=== PATIENT | female | born 1975 | race Caucasian/White ===

== ENCOUNTER 2018-03-19 10:52 | Emergency (ER) | payer OTHER, MEDICAID ==
[~2018-03-19] VITALS: Ht 157.5 cm; Wt 109.3 kg
[2018-03-19 11:23] VITALS: BP_SYST 123
--- NOTE | 2018-03-19 11:39 | NUR ---
Patient to ER bed 03 to gown for evaluation. Side rails up.
--- NOTE | 2018-03-19 11:45 | NUR ---
Pt brought by mother, A&Ox4, pt presents to ER with bumps abd discoloration on L forearm and R breast, pt afebrile, skin pink and warm, VS WNL.
--- NOTE | 2018-03-19 12:00 | NUR ---
Dr Pelaez at bedside examining patient
[2018-03-19 12:36] LABS: BASOPHILS # (AUTO) 0.1 K/uL (0.0-0.2); BASOPHILS % (AUTO) 0.7 % (0.0-2.0); EOSINOPHILS # (AUTO) 0.1 K/uL (0.0-0.4); EOSINOPHILS % (AUTO) 1.1 % (0.0-4.0); HEMATOCRIT 46.5 % (36-48); HEMOGLOBIN 15.4 g/dL (12.0-16.0); LYMPHOCYTES # (AUTO) 2.9 K/uL (1.0-5.5); LYMPHOCYTES % (AUTO) 32.8 % (20.5-51.5); MEAN CORPUSCULAR HEMOGLOBIN 29 pg (27-31); MEAN CORPUSCULAR HGB CONC 33 % (32-36); MEAN CORPUSCULAR VOLUME 86 fL (79.0-98.0); MONOCYTES # (AUTO) 0.9 K/uL (0.0-1.0); NEUTROPHILS # (AUTO) 4.7 K/uL (1.8-7.7); NEUTROPHILS % (AUTO) 55.4 % (40.0-70.0); PLATELET COUNT (AUTO) 305 K/uL (130-430); RED BLOOD CELL COUNT(AUTO) 5.42 MIL/uL (4.2-6.2); RED CELL DISTRIBUTION WIDTH 13.4 % (9.0-15.0); WHITE BLOOD COUNT (AUTO) 8.7 K/uL (4.8-10.8)
[2018-03-19 12:44] LABS: CALCIUM 9.6 mg/dL (8.4-11.0); CREATININE 0.7 mg/dL (0.55-1.30); POTASSIUM 4.8 mmol/L (3.5-5.1)
[2018-03-19 12:48] LABS: ALBUMIN 3.4 g/dL (3.4-4.8); TOTAL BILIRUBIN 0.4 mg/dL (0.0-1.0)
[2018-03-19 13:19] VITALS: BP_SYST 150
[2018-03-19 14:11] LABS: ERYTHROCYTE SEDIMENTATION RATE 2 MM/HR (0-20)
--- NOTE | 2018-03-19 14:40 | NUR ---
Patient given written and verbal discharge instructions and verbalizes understanding. ER MD discussed with patient the results and treatment provided. Patient in stable condition. ID arm band removed. Rx of KEFLEX, TYLENOL given. Patient educated on pain management and to follow up with PMD. Pain Scale . Opportunity for questions provided and answered. Medication side effect fact sheet provided.
== END 2018-03-19 14:40 | disposition home or self-care (01) ==
LOC: SED 10:52
DX: L03.114 Cellulitis of left upper limb (principal); I10 Essential (primary) hypertension; F31.9 Bipolar disorder, unspecified; Z90.49 Acquired absence of other specified parts of digestive tract; Z86.73 Personal history of transient ischemic attack (TIA), and cerebral infarction without residual deficits; Z88.8 Allergy status to other drugs, medicaments and biological substances
CPT/HCPCS: 36415; 80053; 85025; 85651-TC; 99283

== ENCOUNTER 2019-03-13 07:54 | Emergency (ER) | payer OTHER, MEDICAID ==
[~2019-03-13] VITALS: Ht 157.5 cm; Wt 107.5 kg
[2019-03-13 08:09] VITALS: BP_SYST 134
--- NOTE | 2019-03-13 08:13 | NUR ---
Patient to ER bed 03 to gown for evaluation. Side rails up.
--- NOTE | 2019-03-13 08:20 | NUR ---
Patient presented to ER C/O cold and cough. Patient A&Ox4, skin pink and warm, afebrile, cough present, ambulatory to ER, cap refill <3, nasal congestion noted, lungs clear bilat, pain 3/10, denies N/V/D. Patient brought in by mother for cold symtoms and cough x3 weeks.
--- NOTE | 2019-03-13 08:24 | NUR ---
DR MARTINEZ AT BEDSIDE FOR EVALUATION
[2019-03-13 09:13] VITALS: BP_SYST 137
--- NOTE | 2019-03-13 09:13 | NUR ---
Patient given written and verbal discharge instructions and verbalizes understanding. ER MD discussed with patient the results and treatment provided. Patient in stable condition. ID arm band removed. Rx of PREDNISONE, AZITHROMYCIN given. Patient educated on pain management and to follow up with PMD. Pain Scale 0/10. Opportunity for questions provided and answered. Medication side effect fact sheet provided.
== END 2019-03-13 09:13 | disposition home or self-care (01) ==
LOC: SED 07:54
DX: J45.909 Unspecified asthma, uncomplicated (principal); I10 Essential (primary) hypertension; F31.9 Bipolar disorder, unspecified; F20.9 Schizophrenia, unspecified; Z86.73 Personal history of transient ischemic attack (TIA), and cerebral infarction without residual deficits; Z88.8 Allergy status to other drugs, medicaments and biological substances
CPT/HCPCS: 71045; 99283

== ENCOUNTER 2019-07-10 08:55 | Inpatient (IN) | payer OTHER, MEDICAID, SELFPAY ==
[2019-07-09 20:10] VITALS: BP_SYST 129
[~2019-07-10] VITALS: Ht 157.5 cm; Wt 99.8 kg
[2019-07-10 08:55] VITALS: BP_SYST 108
[2019-07-10] MEDS ORDERED: ASPIRIN 81 MG TAB.CHEW PO ONE (09:15)
[2019-07-10] MEDS ORDERED: ALBUTEROL SULFATE 0.083% 2.5 MG/3 ML VIAL.NEB INH ONE (09:28)
[2019-07-10] MEDS ORDERED: IPRATROPIUM BROM 0.5 MG/2.5 ML VIAL.NEB (ATROVENT) INH ONE (09:28)
[2019-07-10] MEDS ORDERED: PREDNISONE 20 MG TABLET PO ONE (09:30)
[2019-07-10] MEDS ORDERED: IPRATROPIUM/ALBUTEROL SULFATE 3 ML AMPUL.NEB (DUONEB) INH ONE (09:30)
[2019-07-10 09:38] LABS: BASOPHILS % (AUTO) 0.5 % (0.0-2.0); EOSINOPHILS # (AUTO) 0.1 K/uL (0.0-0.4); EOSINOPHILS % (AUTO) 1.2 % (0.0-4.0); HEMATOCRIT 40.1 % (36-48); HEMOGLOBIN 13.5 g/dL (12.0-16.0); LYMPHOCYTES # (AUTO) 3.3 K/uL (1.0-5.5); MEAN CORPUSCULAR HEMOGLOBIN 29 pg (27-31); MEAN CORPUSCULAR HGB CONC 34 % (32-36); MEAN CORPUSCULAR VOLUME 85 fL (79.0-98.0); MONOCYTES # (AUTO) 0.9 K/uL (0.0-1.0); NEUTROPHILS # (AUTO) 4.5 K/uL (1.8-7.7); NEUTROPHILS % (AUTO) 51.3 % (40.0-70.0); PLATELET COUNT (AUTO) 275 K/uL (130-430); RED BLOOD CELL COUNT(AUTO) 4.71 MIL/uL (4.2-6.2); RED CELL DISTRIBUTION WIDTH 14.2 % (9.0-15.0); WHITE BLOOD COUNT (AUTO) 8.8 K/uL (4.8-10.8)
[2019-07-10 09:47] LABS: CALCIUM 8.5 mg/dL (8.4-11.0); CREATININE 0.75 mg/dL (0.55-1.30); POTASSIUM 4.1 mmol/L (3.5-5.1)
[2019-07-10] MEDS ORDERED: ASPIRIN 81 MG TAB.CHEW ONE (09:59)
[2019-07-10 10:02] LABS: ALBUMIN 3.2 g/dL (3.4-4.8); TOTAL BILIRUBIN 0.3 mg/dL (0.0-1.0)
[2019-07-10] MEDS ORDERED: ALBMDI INH (10:59)
[2019-07-10] MEDS ORDERED: FLUT5.9S NS (10:59)
[2019-07-10] MEDS ORDERED: LUBI24CA5 PO (11:00)
[2019-07-10] MEDS ORDERED: ASPI-859 PO (11:01)
[2019-07-10] MEDS ORDERED: FOLI-43 PO (11:02)
[2019-07-10] MEDS ORDERED: FAMO20TA8 PO (11:02)
[2019-07-10] MEDS ORDERED: LURA40TA PO (11:03)
[2019-07-10] MEDS ORDERED: LEVO2.5S8 PO (11:04)
[2019-07-10 11:05] LABS: LACTATE DEHYDROGENASE 166 U/L (81-234)
[2019-07-10] MEDS ORDERED: PANT20TA2 PO (11:05)
[2019-07-10 11:06] LABS: C-REACTIVE PROTEIN QUANT < 0.2 mg/dL (0-0.5)
[2019-07-10] MEDS ORDERED: BISA5TAB10 PO (11:06)
[2019-07-10] MEDS ORDERED: TRIH2TAB3 PO (11:06)
[2019-07-10] MEDS ORDERED: VENL75CA PO (11:07)
[2019-07-10] MEDS ORDERED: CARV6.2554 PO (11:10)
[2019-07-10] MEDS ORDERED: DIVA500T4 PO (11:10)
[2019-07-10] MEDS ORDERED: BUPR100T13 PO (11:10)
[2019-07-10 12:59] VITALS: BP_SYST 123
[2019-07-10 13:00] VITALS: BP_SYST 123
[2019-07-10] MEDS ORDERED: LORazepam 2 MG/ML VIAL IVP PRN (14:15)
[2019-07-10] MEDS ORDERED: ACETAMINOPHEN 325 MG TABLET PO PRN (14:15)
[2019-07-10] MEDS ORDERED: ALBUTEROL MDI INHALATION 8 GM INH INH PRN (14:15)
[2019-07-10] MEDS ORDERED: ONDANSETRON HCL 4 MG/2 ML VIAL IVP PRN (14:15)
[2019-07-10 14:31] VITALS: BP_SYST 123
[2019-07-10] MEDS: D5/0.45 NS 1,000 ML IV SCH (16:32)
[2019-07-10 16:35] VITALS: BP_SYST 121
[2019-07-10] MEDS ORDERED: ALBUTEROL MDI INHALATION 8 GM INH INH SCH (17:00)
[2019-07-10] MEDS ORDERED: IOHEXOL 350 mgI/mL, 150 ML INFUS..BTL IV ONE (20:34)
[2019-07-10] MEDS: LUBIPROSTONE 24 MCG CAPSULE PO SCH (21:26)
[2019-07-10] MEDS: methylPREDNISolone SOD SUCC 40 MG/ML VIAL IVP SCH (21:26)
[2019-07-10] MEDS: FAMOTIDINE 20 MG TABLET PO SCH (21:27)
[2019-07-10] MEDS: CARVEDILOL 6.25 MG TABLET (COREG) PO SCH (21:27)
[2019-07-10] MEDS: DIVALPROEX SODIUM 500 MG TAB.SR.24H (DEPAKOTE ER) PO SCH (21:27)
[2019-07-10] MEDS: TRIHEXYPHENIDYL HCL 2 MG TABLET (ARTANE) PO SCH (21:28)
[2019-07-10] MEDS: buPROPion HCL 100 MG TABLET PO SCH (21:37)
[2019-07-11] VITALS: BP_SYST 125
[2019-07-11] MEDS: HYDROcodone/ACETAMIN 10-325 MG TAB PO PRN ×3 (00:04→20:40)
[2019-07-11] MEDS: D5/0.45 NS 1,000 ML IV SCH ×3 (02:44→22:03)
[2019-07-11 06:15] VITALS: BP_SYST 131
[2019-07-11 06:45] LABS: BASOPHILS % (AUTO) 0.2 % (0.0-2.0); HEMATOCRIT 38.1 % (36-48); HEMOGLOBIN 12.9 g/dL (12.0-16.0); LYMPHOCYTES # (AUTO) 1.9 K/uL (1.0-5.5); LYMPHOCYTES % (AUTO) 15.9 % (20.5-51.5); MEAN CORPUSCULAR HEMOGLOBIN 29 pg (27-31); MEAN CORPUSCULAR HGB CONC 34 % (32-36); MEAN CORPUSCULAR VOLUME 84 fL (79.0-98.0); MONOCYTES # (AUTO) 0.7 K/uL (0.0-1.0); MONOCYTES % (AUTO) 6.1 % (1.7-9.3); NEUTROPHILS # (AUTO) 9.4 K/uL (1.8-7.7); NEUTROPHILS % (AUTO) 77.8 % (40.0-70.0); PLATELET COUNT (AUTO) 257 K/uL (130-430); RED BLOOD CELL COUNT(AUTO) 4.51 MIL/uL (4.2-6.2); RED CELL DISTRIBUTION WIDTH 14.3 % (9.0-15.0); WHITE BLOOD COUNT (AUTO) 12.1 K/uL (4.8-10.8)
[2019-07-11 06:51] LABS: ANION GAP 3 (5-15); CALCIUM 8.3 mg/dL (8.4-11.0); CHLORIDE 104 mmol/L (98-107); CREATININE 0.71 mg/dL (0.55-1.30); GLUCOSE 154 mg/dL (70-99); PHOSPHORUS 4.2 mg/dL (2.7-4.5); POTASSIUM 4.4 mmol/L (3.5-5.1); SODIUM SERUM 136 mmol/L (136-145); UREA NITROGEN, BLOOD 13 mg/dL (8-21)
[2019-07-11 07:05] LABS: GFR AFRICAN AMERICAN 114 mL/min (>90)
[2019-07-11 07:06] LABS: C-REACTIVE PROTEIN QUANT < 0.2 mg/dL (0-0.5)
[2019-07-11 08:00] VITALS: BP_SYST 125
[2019-07-11] MEDS: DIVALPROEX SODIUM 500 MG TAB.SR.24H (DEPAKOTE ER) PO SCH ×2 (08:02→20:45)
[2019-07-11] MEDS: BISACODYL 5 MG TABLET.DR (DULCOLAX) PO SCH (08:03)
[2019-07-11] MEDS: methylPREDNISolone SOD SUCC 40 MG/ML VIAL IVP SCH ×2 (08:03→20:44)
[2019-07-11] MEDS: FOLIC ACID 1 MG TABLET PO SCH (08:03)
[2019-07-11] MEDS: TRIHEXYPHENIDYL HCL 2 MG TABLET (ARTANE) PO SCH ×2 (08:03→20:44)
[2019-07-11] MEDS: ASPIRIN 81 MG TABLET(ECOTRIN) PO SCH (08:04)
[2019-07-11] MEDS: PANTOPRAZOLE SODIUM 40 MG TAB PO SCH (08:04)
[2019-07-11] MEDS: LORATADINE 10 MG TABLET PO SCH (08:04)
[2019-07-11] MEDS ORDERED: ALBUTEROL SULFATE 0.083% 2.5 MG/3 ML VIAL.NEB INH PRN (08:15)
[2019-07-11] MEDS: VENLAFAXINE HCL 75 MG TABLET PO SCH ×2 (08:17→20:45)
[2019-07-11] MEDS: CARVEDILOL 6.25 MG TABLET (COREG) PO SCH ×2 (08:22→20:41)
[2019-07-11 08:49] LABS: ERYTHROCYTE SEDIMENTATION RATE 5 MM/HR (0-20)
[2019-07-11] MEDS: buPROPion HCL 100 MG TABLET PO SCH ×2 (09:00→22:03)
[2019-07-11] MEDS ORDERED: FLUTICASONE PROPIONATE 50 mCg/SPRAY 16 GM PRN (09:00)
[2019-07-11] MEDS: HYDROcodone/ACETAMIN 5-325 MG TAB (NORCO/ VICODIN) PO PRN (11:17)
[2019-07-11 12:00] VITALS: BP_SYST 132
[2019-07-11] MEDS ORDERED: IPRATROPIUM/ALBUTEROL SULFATE 3 ML AMPUL.NEB (DUONEB) INH ONE (16:30)
[2019-07-11] MEDS ORDERED: LEVOFLOXACIN 250 MG TABLET PO ONE (16:30)
[2019-07-11 17:09] VITALS: BP_SYST 124
[2019-07-11 20:00] VITALS: BP_SYST 123
[2019-07-11] MEDS: IPRATROPIUM/ALBUTEROL SULFATE 3 ML AMPUL.NEB (DUONEB) INH SCH ×2 (20:03→23:23)
[2019-07-11] MEDS: FAMOTIDINE 20 MG TABLET PO SCH (20:41)
[2019-07-11] MEDS: LUBIPROSTONE 24 MCG CAPSULE PO SCH (20:42)
[2019-07-11] MEDS: LATUDA 40 MG PO SCH (20:43)
[2019-07-12 00:40] VITALS: BP_SYST 130
[2019-07-12] MEDS: HYDROcodone/ACETAMIN 5-325 MG TAB (NORCO/ VICODIN) PO PRN (01:49)
[2019-07-12] MEDS: IPRATROPIUM/ALBUTEROL SULFATE 3 ML AMPUL.NEB (DUONEB) INH SCH ×6 (05:48→23:09)
[2019-07-12 06:51] LABS: ANION GAP 1 (5-15); CALCIUM 8.3 mg/dL (8.4-11.0); CHLORIDE 99 mmol/L (98-107); CREATININE 0.74 mg/dL (0.55-1.30); GLUCOSE 128 mg/dL (70-99); POTASSIUM 4.2 mmol/L (3.5-5.1); SODIUM SERUM 129 mmol/L (136-145); UREA NITROGEN, BLOOD 12 mg/dL (8-21)
[2019-07-12 06:56] LABS: GFR AFRICAN AMERICAN 109 mL/min (>90)
[2019-07-12] MEDS: D5/0.45 NS 1,000 ML IV SCH (06:57)
[2019-07-12 07:14] LABS: BASOPHILS % (AUTO) 0.2 % (0.0-2.0); LYMPHOCYTES # (AUTO) 2.8 K/uL (1.0-5.5); LYMPHOCYTES % (AUTO) 18.9 % (20.5-51.5); MEAN CORPUSCULAR HEMOGLOBIN 28 pg (27-31); MEAN CORPUSCULAR HGB CONC 33 % (32-36); MEAN CORPUSCULAR VOLUME 84 fL (79.0-98.0); MONOCYTES % (AUTO) 6.9 % (1.7-9.3); NEUTROPHILS # (AUTO) 10.8 K/uL (1.8-7.7); PLATELET COUNT (AUTO) 293 K/uL (130-430); RED BLOOD CELL COUNT(AUTO) 4.62 MIL/uL (4.2-6.2); RED CELL DISTRIBUTION WIDTH 14.8 % (9.0-15.0); WHITE BLOOD COUNT (AUTO) 14.6 K/uL (4.8-10.8)
[2019-07-12 07:42] LABS: C-REACTIVE PROTEIN QUANT < 0.2 mg/dL (0-0.5)
[2019-07-12 08:00] VITALS: BP_SYST 122
[2019-07-12 08:33] LABS: ERYTHROCYTE SEDIMENTATION RATE 4 MM/HR (0-20)
[2019-07-12] MEDS: buPROPion HCL 100 MG TABLET PO SCH ×2 (09:14→21:18)
[2019-07-12] MEDS: LORATADINE 10 MG TABLET PO SCH (09:14)
[2019-07-12] MEDS: methylPREDNISolone SOD SUCC 40 MG/ML VIAL IVP SCH ×2 (09:14→21:20)
[2019-07-12] MEDS: FOLIC ACID 1 MG TABLET PO SCH (09:14)
[2019-07-12] MEDS: TRIHEXYPHENIDYL HCL 2 MG TABLET (ARTANE) PO SCH ×2 (09:15→21:17)
[2019-07-12] MEDS: PANTOPRAZOLE SODIUM 40 MG TAB PO SCH (09:15)
[2019-07-12] MEDS: CARVEDILOL 6.25 MG TABLET (COREG) PO SCH ×2 (09:15→21:19)
[2019-07-12] MEDS: LEVOFLOXACIN 250 MG TABLET PO SCH (09:15)
[2019-07-12] MEDS: ASPIRIN 81 MG TABLET(ECOTRIN) PO SCH (09:15)
[2019-07-12] MEDS: BISACODYL 5 MG TABLET.DR (DULCOLAX) PO SCH (09:15)
[2019-07-12] MEDS: DIVALPROEX SODIUM 500 MG TAB.SR.24H (DEPAKOTE ER) PO SCH ×2 (09:15→21:16)
[2019-07-12] MEDS: VENLAFAXINE HCL 75 MG TABLET PO SCH ×2 (09:16→21:16)
[2019-07-12 12:32] VITALS: BP_SYST 132
[2019-07-12] MEDS ORDERED: FLUTICASONE 44 mcg/ACTUATION MDI AER.W.ADAP INH SCH (12:45)
[2019-07-12] MEDS: NORMAL SALINE 5 ML DISP.SYRIN IVF SCH ×2 (14:53→21:21)
[2019-07-12 17:11] VITALS: BP_SYST 123
[2019-07-12] MEDS: ALBUTEROL SULFATE 0.083% 2.5 MG/3 ML VIAL.NEB INH SCH (19:00)
[2019-07-12 20:00] VITALS: BP_SYST 146
[2019-07-12] MEDS: HYDROcodone/ACETAMIN 10-325 MG TAB PO PRN (20:23)
[2019-07-12] MEDS: LATUDA 40 MG PO SCH (21:17)
[2019-07-12] MEDS: FAMOTIDINE 20 MG TABLET PO SCH (21:18)
[2019-07-12] MEDS: LUBIPROSTONE 24 MCG CAPSULE PO SCH (21:19)
[2019-07-13] VITALS (7 sets, daily range): BP systolic 121–137
[2019-07-13] MEDS: IPRATROPIUM/ALBUTEROL SULFATE 3 ML AMPUL.NEB (DUONEB) INH SCH ×6 (03:37→23:00)
[2019-07-13] MEDS: NORMAL SALINE 5 ML DISP.SYRIN IVF SCH ×3 (06:26→21:09)
[2019-07-13 06:44] LABS: ANION GAP 5 (5-15); CALCIUM 8.7 mg/dL (8.4-11.0); CHLORIDE 102 mmol/L (98-107); CHOLESTEROL 196 mg/dL (<200); CREATININE 0.76 mg/dL (0.55-1.30); GLUCOSE 112 mg/dL (70-99); HDL CHOLESTEROL 70 mg/dL (>55); LDL CHOLESTEROL 99 mg/dL (<100); POTASSIUM 4.5 mmol/L (3.5-5.1); SODIUM SERUM 135 mmol/L (136-145); TRIGLYCERIDES 95 mg/dL (30-150); UREA NITROGEN, BLOOD 14 mg/dL (8-21)
[2019-07-13 06:47] LABS: C-REACTIVE PROTEIN QUANT < 0.2 mg/dL (0-0.5); GFR AFRICAN AMERICAN 106 mL/min (>90)
[2019-07-13 07:18] LABS: BASOPHILS % (AUTO) 0.3 % (0.0-2.0); HEMATOCRIT 41.7 % (36-48); LYMPHOCYTES # (AUTO) 3.8 K/uL (1.0-5.5); LYMPHOCYTES % (AUTO) 26.9 % (20.5-51.5); MEAN CORPUSCULAR HEMOGLOBIN 28 pg (27-31); MEAN CORPUSCULAR HGB CONC 34 % (32-36); MEAN CORPUSCULAR VOLUME 84 fL (79.0-98.0); MONOCYTES # (AUTO) 1.1 K/uL (0.0-1.0); MONOCYTES % (AUTO) 7.7 % (1.7-9.3); NEUTROPHILS # (AUTO) 9.2 K/uL (1.8-7.7); NEUTROPHILS % (AUTO) 65.1 % (40.0-70.0); PLATELET COUNT (AUTO) 308 K/uL (130-430); RED CELL DISTRIBUTION WIDTH 14.7 % (9.0-15.0); WHITE BLOOD COUNT (AUTO) 14.1 K/uL (4.8-10.8)
[2019-07-13 08:01] LABS: ERYTHROCYTE SEDIMENTATION RATE 2 MM/HR (0-20)
[2019-07-13] MEDS: methylPREDNISolone SOD SUCC 40 MG/ML VIAL IVP SCH ×2 (08:49→20:49)
[2019-07-13] MEDS: BISACODYL 5 MG TABLET.DR (DULCOLAX) PO SCH (08:49)
[2019-07-13] MEDS: FOLIC ACID 1 MG TABLET PO SCH (08:49)
[2019-07-13] MEDS: ASPIRIN 81 MG TABLET(ECOTRIN) PO SCH (08:49)
[2019-07-13] MEDS: LORATADINE 10 MG TABLET PO SCH (08:50)
[2019-07-13] MEDS: CARVEDILOL 6.25 MG TABLET (COREG) PO SCH ×2 (08:50→20:43)
[2019-07-13] MEDS: PANTOPRAZOLE SODIUM 40 MG TAB PO SCH (08:50)
[2019-07-13] MEDS: TRIHEXYPHENIDYL HCL 2 MG TABLET (ARTANE) PO SCH ×2 (08:52→20:45)
[2019-07-13] MEDS: DIVALPROEX SODIUM 500 MG TAB.SR.24H (DEPAKOTE ER) PO SCH ×2 (08:52→20:48)
[2019-07-13] MEDS: VENLAFAXINE HCL 75 MG TABLET PO SCH ×2 (08:52→20:46)
[2019-07-13] MEDS: LEVOFLOXACIN 250 MG TABLET PO SCH (09:02)
[2019-07-13] MEDS: buPROPion HCL 100 MG TABLET PO SCH ×2 (09:02→21:09)
[2019-07-13] MEDS: HYDROcodone/ACETAMIN 10-325 MG TAB PO PRN (15:52)
[2019-07-13] MEDS: LUBIPROSTONE 24 MCG CAPSULE PO SCH (20:42)
[2019-07-13] MEDS: ATORVASTATIN 10 MG TABLET PO SCH (20:43)
[2019-07-13] MEDS: IBUPROFEN 400 MG TABLET PO SCH (20:45)
[2019-07-13] MEDS: FAMOTIDINE 20 MG TABLET PO SCH (20:45)
[2019-07-13] MEDS: LATUDA 40 MG PO SCH (20:49)
[2019-07-14] VITALS: BP_SYST 118
[2019-07-14] MEDS: IPRATROPIUM/ALBUTEROL SULFATE 3 ML AMPUL.NEB (DUONEB) INH SCH ×6 (03:00→23:09)
[2019-07-14] MEDS: NORMAL SALINE 5 ML DISP.SYRIN IVF SCH ×3 (06:22→21:05)
[2019-07-14 06:24] LABS: BASOPHILS # (AUTO) 0.1 K/uL (0.0-0.2); BASOPHILS % (AUTO) 0.3 % (0.0-2.0); HEMATOCRIT 42.8 % (36-48); HEMOGLOBIN 14.4 g/dL (12.0-16.0); LYMPHOCYTES # (AUTO) 3.5 K/uL (1.0-5.5); LYMPHOCYTES % (AUTO) 23.7 % (20.5-51.5); MEAN CORPUSCULAR HEMOGLOBIN 28 pg (27-31); MEAN CORPUSCULAR HGB CONC 34 % (32-36); MEAN CORPUSCULAR VOLUME 84 fL (79.0-98.0); MONOCYTES # (AUTO) 1.2 K/uL (0.0-1.0); MONOCYTES % (AUTO) 8.2 % (1.7-9.3); NEUTROPHILS % (AUTO) 67.8 % (40.0-70.0); PLATELET COUNT (AUTO) 304 K/uL (130-430); RED BLOOD CELL COUNT(AUTO) 5.09 MIL/uL (4.2-6.2); RED CELL DISTRIBUTION WIDTH 14.2 % (9.0-15.0); WHITE BLOOD COUNT (AUTO) 14.8 K/uL (4.8-10.8)
[2019-07-14 06:50] LABS: CALCIUM 8.7 mg/dL (8.4-11.0); CREATININE 0.7 mg/dL (0.55-1.30); POTASSIUM 4.9 mmol/L (3.5-5.1)
[2019-07-14 08:16] VITALS: BP_SYST 140
[2019-07-14] MEDS: ASPIRIN 81 MG TABLET(ECOTRIN) PO SCH (08:39)
[2019-07-14] MEDS: IBUPROFEN 400 MG TABLET PO SCH ×3 (08:39→20:52)
[2019-07-14] MEDS: buPROPion HCL 100 MG TABLET PO SCH ×2 (08:39→20:51)
[2019-07-14] MEDS: PANTOPRAZOLE SODIUM 40 MG TAB PO SCH (08:39)
[2019-07-14] MEDS: BISACODYL 5 MG TABLET.DR (DULCOLAX) PO SCH (08:39)
[2019-07-14] MEDS: FOLIC ACID 1 MG TABLET PO SCH (08:40)
[2019-07-14] MEDS: LORATADINE 10 MG TABLET PO SCH (08:40)
[2019-07-14] MEDS: LOSARTAN POTASSIUM 25 MG TABLET PO SCH (08:40)
[2019-07-14] MEDS: TRIHEXYPHENIDYL HCL 2 MG TABLET (ARTANE) PO SCH ×2 (08:41→20:53)
[2019-07-14] MEDS: DIVALPROEX SODIUM 500 MG TAB.SR.24H (DEPAKOTE ER) PO SCH ×2 (08:41→20:53)
[2019-07-14] MEDS: VENLAFAXINE HCL 75 MG TABLET PO SCH ×2 (08:41→20:53)
[2019-07-14] MEDS: methylPREDNISolone SOD SUCC 40 MG/ML VIAL IVP SCH (08:42)
[2019-07-14] MEDS: CARVEDILOL 6.25 MG TABLET (COREG) PO SCH ×2 (08:49→20:52)
[2019-07-14] MEDS: LEVOFLOXACIN 250 MG TABLET PO SCH (10:17)
[2019-07-14 12:23] VITALS: BP_SYST 125
[2019-07-14 15:31] VITALS: BP_SYST 135
[2019-07-14] MEDS ORDERED: PREDNISONE 20 MG TABLET PO ONE (17:30)
[2019-07-14 20:00] VITALS: BP_SYST 110
[2019-07-14] MEDS: FAMOTIDINE 20 MG TABLET PO SCH (20:52)
[2019-07-14] MEDS: LUBIPROSTONE 24 MCG CAPSULE PO SCH (20:52)
[2019-07-14] MEDS: ATORVASTATIN 10 MG TABLET PO SCH (20:52)
[2019-07-14] MEDS: LATUDA 40 MG PO SCH (20:54)
[2019-07-14 23:50] VITALS: BP_SYST 127
[2019-07-15] MEDS: IPRATROPIUM/ALBUTEROL SULFATE 3 ML AMPUL.NEB (DUONEB) INH SCH ×5 (03:00→23:00)
[2019-07-15] MEDS: NORMAL SALINE 5 ML DISP.SYRIN IVF SCH ×3 (05:48→20:53)
[2019-07-15 06:32] LABS: LYMPHOCYTES # (AUTO) 4.2 K/uL (1.0-5.5)
[2019-07-15 06:51] LABS: CALCIUM 8.6 mg/dL (8.4-11.0); CREATININE 0.83 mg/dL (0.55-1.30); POTASSIUM 4.7 mmol/L (3.5-5.1)
[2019-07-15 06:52] LABS: BASOPHILS % (AUTO) 0.2 % (0.0-2.0); HEMATOCRIT 43.7 % (36-48); HEMOGLOBIN 14.6 g/dL (12.0-16.0); LYMPHOCYTES % (AUTO) 26.1 % (20.5-51.5); MEAN CORPUSCULAR HEMOGLOBIN 28 pg (27-31); MEAN CORPUSCULAR HGB CONC 33 % (32-36); MEAN CORPUSCULAR VOLUME 85 fL (79.0-98.0); MONOCYTES # (AUTO) 1.3 K/uL (0.0-1.0); MONOCYTES % (AUTO) 7.9 % (1.7-9.3); NEUTROPHILS # (AUTO) 10.5 K/uL (1.8-7.7); NEUTROPHILS % (AUTO) 65.8 % (40.0-70.0); PLATELET COUNT (AUTO) 323 K/uL (130-430); RED BLOOD CELL COUNT(AUTO) 5.14 MIL/uL (4.2-6.2); RED CELL DISTRIBUTION WIDTH 14.5 % (9.0-15.0)
[2019-07-15 08:00] VITALS: BP_SYST 123
[2019-07-15] MEDS: CARVEDILOL 6.25 MG TABLET (COREG) PO SCH ×2 (09:03→20:49)
[2019-07-15] MEDS: IBUPROFEN 400 MG TABLET PO SCH ×3 (09:03→20:52)
[2019-07-15] MEDS: PREDNISONE 20 MG TABLET PO SCH ×2 (09:03→17:54)
[2019-07-15] MEDS: LORATADINE 10 MG TABLET PO SCH (09:03)
[2019-07-15] MEDS: LOSARTAN POTASSIUM 25 MG TABLET PO SCH (09:04)
[2019-07-15] MEDS: PANTOPRAZOLE SODIUM 40 MG TAB PO SCH (09:04)
[2019-07-15] MEDS: BISACODYL 5 MG TABLET.DR (DULCOLAX) PO SCH (09:04)
[2019-07-15] MEDS: FOLIC ACID 1 MG TABLET PO SCH (09:04)
[2019-07-15] MEDS: ASPIRIN 81 MG TABLET(ECOTRIN) PO SCH (09:04)
[2019-07-15] MEDS: TRIHEXYPHENIDYL HCL 2 MG TABLET (ARTANE) PO SCH ×2 (09:05→20:48)
[2019-07-15] MEDS: VENLAFAXINE HCL 75 MG TABLET PO SCH ×2 (09:07→20:50)
[2019-07-15] MEDS: buPROPion HCL 100 MG TABLET PO SCH ×2 (09:21→20:53)
[2019-07-15] MEDS: LEVOFLOXACIN 250 MG TABLET PO SCH (10:19)
[2019-07-15] MEDS: DIVALPROEX SODIUM 500 MG TAB.SR.24H (DEPAKOTE ER) PO SCH ×2 (10:20→20:49)
[2019-07-15 12:20] VITALS: BP_SYST 138
[2019-07-15 16:20] VITALS: BP_SYST 125
[2019-07-15] MEDS ORDERED: LOSA25TA3 PO (17:28)
[2019-07-15] MEDS ORDERED: LIP10 PO (17:28)
[2019-07-15] MEDS ORDERED: PRED10TA PO (17:28)
[2019-07-15] MEDS ORDERED: PRED20TA PO (17:28)
[2019-07-15] MEDS ORDERED: FLO44 INH (17:30)
[2019-07-15 19:00] VITALS: BP_SYST 113
[2019-07-15] MEDS: ALBUTEROL SULFATE 0.083% 2.5 MG/3 ML VIAL.NEB INH SCH (19:00)
[2019-07-15] MEDS: BUDESONIDE 0.5 MG/2 ML AMPUL.NEB INH SCH (19:45)
[2019-07-15 20:00] VITALS: BP_SYST 113
[2019-07-15] MEDS: LUBIPROSTONE 24 MCG CAPSULE PO SCH (20:48)
[2019-07-15] MEDS: ATORVASTATIN 10 MG TABLET PO SCH (20:50)
[2019-07-15] MEDS: FAMOTIDINE 20 MG TABLET PO SCH (20:53)
[2019-07-15] MEDS: LATUDA 40 MG PO SCH (20:53)
[2019-07-15 23:46] VITALS: BP_SYST 127
[2019-07-16] MEDS: IPRATROPIUM/ALBUTEROL SULFATE 3 ML AMPUL.NEB (DUONEB) INH SCH ×2 (03:00→09:53)
[2019-07-16] MEDS: NORMAL SALINE 5 ML DISP.SYRIN IVF SCH ×2 (05:29→14:24)
[2019-07-16 06:21] LABS: CALCIUM 8.2 mg/dL (8.4-11.0); CREATININE 0.96 mg/dL (0.55-1.30)
[2019-07-16 06:31] LABS: HEMATOCRIT 44.1 % (36-48); HEMOGLOBIN 14.9 g/dL (12.0-16.0); MEAN CORPUSCULAR HEMOGLOBIN 28 pg (27-31); MEAN CORPUSCULAR HGB CONC 34 % (32-36); MEAN CORPUSCULAR VOLUME 84 fL (79.0-98.0); PLATELET COUNT (AUTO) 321 K/uL (130-430); RED BLOOD CELL COUNT(AUTO) 5.25 MIL/uL (4.2-6.2); RED CELL DISTRIBUTION WIDTH 14.5 % (9.0-15.0); WHITE BLOOD COUNT (AUTO) 16.4 K/uL (4.8-10.8)
[2019-07-16 08:00] VITALS: BP_SYST 133
[2019-07-16] MEDS: LOSARTAN POTASSIUM 25 MG TABLET PO SCH (08:09)
[2019-07-16] MEDS: PANTOPRAZOLE SODIUM 40 MG TAB PO SCH (08:10)
[2019-07-16] MEDS: ASPIRIN 81 MG TABLET(ECOTRIN) PO SCH (08:10)
[2019-07-16] MEDS: BISACODYL 5 MG TABLET.DR (DULCOLAX) PO SCH (08:10)
[2019-07-16] MEDS: LORATADINE 10 MG TABLET PO SCH (08:10)
[2019-07-16] MEDS: PREDNISONE 20 MG TABLET PO SCH (08:11)
[2019-07-16] MEDS: IBUPROFEN 400 MG TABLET PO SCH ×2 (08:11→14:24)
[2019-07-16] MEDS: CARVEDILOL 6.25 MG TABLET (COREG) PO SCH (08:11)
[2019-07-16] MEDS: TRIHEXYPHENIDYL HCL 2 MG TABLET (ARTANE) PO SCH (08:12)
[2019-07-16] MEDS: FOLIC ACID 1 MG TABLET PO SCH (08:12)
[2019-07-16] MEDS: VENLAFAXINE HCL 75 MG TABLET PO SCH (08:12)
[2019-07-16] MEDS: DIVALPROEX SODIUM 500 MG TAB.SR.24H (DEPAKOTE ER) PO SCH (08:13)
[2019-07-16 08:39] LABS: BAND % (MANUAL) 4 % (0-6); BASOPHILS % (MANUAL) 0 % (0-2); EOSINOPHILS % (MANUAL) 0 % (0-7); LYMPHOCYTES % (MANUAL) 24 % (20-46); MONOCYTES % (MANUAL) 4 % (0-11)
[2019-07-16] MEDS: BUDESONIDE 0.5 MG/2 ML AMPUL.NEB INH SCH (09:54)
[2019-07-16] MEDS ORDERED: buPROPion HCL 75 MG TABLET PO ONE (10:30)
[2019-07-16] MEDS: LEVOFLOXACIN 250 MG TABLET PO SCH (10:34)
[2019-07-16 12:54] VITALS: BP_SYST 125
[2019-07-16 16:11] VITALS: BP_SYST 127
[2019-07-16 16:22] VITALS: BP_SYST 125
[2019-07-16 16:44] VITALS: BP_SYST 127
[2019-07-16] MEDS ORDERED: buPROPion HCL 75 MG TABLET PO SCH (21:00)
== END 2019-07-16 16:35 | disposition home or self-care (01) | DRG 205 ==
LOC: SED 08:55 → EEVIPCON 11:13 → STU 11:13
PROVIDERS: ADMIT Preventive Medicine Preventive Medicine/Occupational Environmental Medicine; ATTEND Preventive Medicine Preventive Medicine/Occupational Environmental Medicine
DX: M94.0 Chondrocostal junction syndrome [Tietze] (principal); J96.01 Acute respiratory failure with hypoxia; Z68.41 Body mass index [BMI] 40.0-44.9, adult; J45.41 Moderate persistent asthma with (acute) exacerbation; J44.1 Chronic obstructive pulmonary disease with (acute) exacerbation; E87.1 Hypo-osmolality and hyponatremia; F25.9 Schizoaffective disorder, unspecified; F31.9 Bipolar disorder, unspecified; R73.9 Hyperglycemia, unspecified; I11.9 Hypertensive heart disease without heart failure; T38.0X5A Adverse effect of glucocorticoids and synthetic analogues, initial encounter; E78.5 Hyperlipidemia, unspecified; E66.09 Other obesity due to excess calories; E83.51 Hypocalcemia; Z03.818 Encounter for observation for suspected exposure to other biological agents ruled out; Z88.8 Allergy status to other drugs, medicaments and biological substances; Z86.73 Personal history of transient ischemic attack (TIA), and cerebral infarction without residual deficits; Z79.899 Other long term (current) drug therapy; Y92.89 Other specified places as the place of occurrence of the external cause
CPT/HCPCS: 36415; 71045; 71275; 80048; 80053; 80061; 82550-TC; 82728; 83036; 83615-TC; 83735-TC; 83880; 84100-TC; 84484; 85007; 85025; 85027; 85379; 85651-TC; 86140; 86710; 93005; 94640; 94760; 99285; G0378; J1030; J7512; J7613; J7626; Q9967; U0002

== ENCOUNTER 2020-02-09 09:57 | Emergency (ER) | payer OTHER, MEDICAID ==
[~2020-02-09] VITALS: Ht 157.5 cm; Wt 99.3 kg
[~2020-02-09 09:57] MED LIST: ALBMDI INH; ASPI-859 PO; BISA5TAB10 PO; BUPR100T13 PO; CARV6.2554 PO; DIVA500T4 PO; FAMO20TA8 PO; FLO44 INH; FLUT5.9S NS; FOLI-43 PO; LEVO2.5S8 PO; LIP10 PO; LOSA25TA3 PO; LUBI24CA5 PO; LURA40TA PO; PANT20TA2 PO; PRED10TA PO; PRED20TA PO; TRIH2TAB3 PO; VENL75CA PO
[2020-02-09 10:02] VITALS: BP_SYST 126
[2020-02-09] MEDS ORDERED: KETOROLAC TROMETHAMINE 30 MG VIAL IVP ONE (10:30)
[2020-02-09 10:34] LABS: BASOPHILS # (AUTO) 0.1 K/uL (0.0-0.2); BASOPHILS % (AUTO) 0.8 % (0.0-2.0); EOSINOPHILS # (AUTO) 0.2 K/uL (0.0-0.4); EOSINOPHILS % (AUTO) 2.2 % (0.0-4.0); HEMATOCRIT 37.8 % (36-48); HEMOGLOBIN 12.9 g/dL (12.0-16.0); LYMPHOCYTES # (AUTO) 3.3 K/uL (1.0-5.5); LYMPHOCYTES % (AUTO) 43.8 % (20.5-51.5); MEAN CORPUSCULAR HEMOGLOBIN 29 pg (27-31); MEAN CORPUSCULAR HGB CONC 34 % (32-36); MEAN CORPUSCULAR VOLUME 84 fL (79.0-98.0); MONOCYTES # (AUTO) 0.9 K/uL (0.0-1.0); MONOCYTES % (AUTO) 12.3 % (1.7-9.3); NEUTROPHILS # (AUTO) 3.1 K/uL (1.8-7.7); NEUTROPHILS % (AUTO) 40.9 % (40.0-70.0); PLATELET COUNT (AUTO) 369 K/uL (130-430); RED BLOOD CELL COUNT(AUTO) 4.52 MIL/uL (4.2-6.2); RED CELL DISTRIBUTION WIDTH 14.5 % (9.0-15.0); WHITE BLOOD COUNT (AUTO) 7.5 K/uL (4.8-10.8)
[2020-02-09 10:43] LABS: CALCIUM 8.5 mg/dL (8.4-11.0); CREATININE 0.64 mg/dL (0.55-1.30); POTASSIUM 4.6 mmol/L (3.5-5.1)
[2020-02-09 10:49] LABS: ALBUMIN 3.2 g/dL (3.4-4.8); TOTAL BILIRUBIN 0.3 mg/dL (0.0-1.0)
[2020-02-09] MEDS ORDERED: NACL 0.9% 1,000 ML IV ONE (11:15)
[2020-02-09 12:11] LABS: BILIRUBIN,URINE NEGATIVE (NEGATIVE); BLOOD, URINE NEGATIVE (NEGATIVE); CLARITY/URINE CLEAR (CLEAR); COLOR,URINE YELLOW (YELLOW); GLUCOSE,URINE NEGATIVE (NEGATIVE); KETONES,URINE NEGATIVE (NEGATIVE); LEUKOCYTE ESTERASE ,URINE NEGATIVE (NEGATIVE); NITRITE, URINE NEGATIVE (NEGATIVE); PROTEIN URINE NEGATIVE (NEGATIVE); UROBILINOGEN,URINE 0.2 (0.2-1.0)
[2020-02-09 13:00] VITALS: BP_SYST 115
[2020-02-11 03:08] LABS: CHLAMYDIA TRACHOMATIS NAA Negative (Negative); NEISSERIA GONORRHOEAE NAA Negative (Negative)
== END 2020-02-09 13:00 | disposition home or self-care (01) ==
LOC: SED 09:57
DX: N39.0 Urinary tract infection, site not specified (principal); R10.9 Unspecified abdominal pain; I10 Essential (primary) hypertension; J44.9 Chronic obstructive pulmonary disease, unspecified; Z86.79 Personal history of other diseases of the circulatory system; Z79.899 Other long term (current) drug therapy; Z88.8 Allergy status to other drugs, medicaments and biological substances
CPT/HCPCS: 36415; 76856-TC; 80053; 81003; 85025; 87491; 87591; 96361; 96374; 99284

== ENCOUNTER 2020-07-07 15:14 | Emergency (ER) | payer OTHER, MEDICAID ==
[~2020-07-07] VITALS: Ht 157.5 cm; Wt 107.0 kg
[2020-07-07 15:15] VITALS: BP_SYST 135
[2020-07-07] MEDS ORDERED: ALBUTEROL SULFATE 0.083% 2.5 MG/3 ML VIAL.NEB INH ONE (15:45)
[2020-07-07] MEDS ORDERED: predniSONE 20 MG TABLET PO ONE (15:45)
[2020-07-07] MEDS ORDERED: IPRATROPIUM BROM 0.5 MG/2.5 ML VIAL.NEB (ATROVENT) INH ONE (15:45)
[2020-07-07] MEDS ORDERED: PRED20TA PO (17:04)
[2020-07-07 17:33] VITALS: BP_SYST 121
== END 2020-07-07 17:35 | disposition home or self-care (01) ==
LOC: SED 15:14
DX: J45.901 Unspecified asthma with (acute) exacerbation (principal); R06.02 Shortness of breath; I10 Essential (primary) hypertension; Z90.49 Acquired absence of other specified parts of digestive tract; Z79.899 Other long term (current) drug therapy; Z88.6 Allergy status to analgesic agent
CPT/HCPCS: 94640; 99283; J7512; J7613

== ENCOUNTER 2020-11-16 12:40 | Emergency (ER) | payer OTHER, MEDICAID, SELFPAY ==
[~2020-11-16] VITALS: Ht 160 cm; Wt 112.5 kg
[2020-11-16 12:40] VITALS: BP_SYST 132
--- NOTE | 2020-11-16 12:40 | NUR ---
BROUGHT TO TRIAGE TENT AND TRIAGED. AWAITING ER BED.
--- NOTE | 2020-11-16 13:40 | NUR ---
RESTING QUIETLY OUTSIDE IN TENT WITH MOTHER. NO RESP DISTRESS, TALKING FULL SENTENCES
--- NOTE | 2020-11-16 14:30 | NUR ---
PT IN TRIAGE TENT, NO CHANGES. TALKING WITH OTHER PTS, IN NO DISTRESS
[2020-11-16 15:05] VITALS: BP_SYST 127
--- NOTE | 2020-11-16 15:10 | NUR ---
DR MARTINEZ OUT TO TRIAGE TENT FOR EVALUATION
--- NOTE | 2020-11-16 16:10 | NUR ---
PT STATES SHE WILL GO HOME AND TAKE HER PAIN MEDICATION.
--- NOTE | 2020-11-16 16:14 | NUR ---
Patient given written and verbal discharge instructions and verbalizes understanding. ER MD discussed with patient the results and treatment provided. Patient in stable condition. ID arm band removed. Rx of NONE given. Patient educated on pain management and to follow up with PMD. Pain Scale 0/10. Opportunity for questions provided and answered. Medication side effect fact sheet provided.
== END 2020-11-16 16:14 | disposition home or self-care (01) ==
LOC: SED 12:40
DX: R06.02 Shortness of breath (principal); T41.3X5A Adverse effect of local anesthetics, initial encounter; I10 Essential (primary) hypertension; J44.9 Chronic obstructive pulmonary disease, unspecified; Z20.822 Contact with and (suspected) exposure to COVID-19; Z88.8 Allergy status to other drugs, medicaments and biological substances; Z79.899 Other long term (current) drug therapy; Y92.89 Other specified places as the place of occurrence of the external cause
CPT/HCPCS: 36415; 36600; 82803-TC; 99283

== ENCOUNTER 2021-02-14 14:14 | Emergency (ER) | payer OTHER, MEDICAID ==
[~2021-02-14] VITALS: Ht 157.5 cm; Wt 109.3 kg
[2021-02-14 14:26] VITALS: BP_SYST 154
--- NOTE | 2021-02-14 15:22 | NUR ---
MOM BRINGS IN DTR FOR C/O GENERALIZED WEAKNESS/DIZZINESS AND CHEST TIGHTNESS FOR THE LAST 5 DAYS. PT IN NAD. RESP EVEN AND UNLABORED, ON RA @99%. SKIN W/D/I. BP 129/78, HR-103. MOM COMES TO BEDSIDE AFTER PT TELLS ME HER MOTHER IS HER PRIMARY CAREGIVER DUE TO MENTAL HEALTH HISTORY OF BIPOLAR AND SCHIZOAFFECTIVE. MO REPORTS SHE WAS TAKING COREG 6.25 AND DOSAGE CHANGED TO 25MG BY HER PRIMARY CARE DOCTOR. MOTHER ALSO STATES " SHE THINKS HER PCP IS NOPT DOSINGHER CORRECTLY." PT ON MONITOR, NSR. SAFETY MEASURES IN PLACE, WILL CONT TO MONITOR.
[2021-02-14] MEDS ORDERED: NACL 0.9% 1,000 ML IV ONE (16:30)
[2021-02-14 16:49] LABS: BASOPHILS % (AUTO) 0.1 % (0.0-2.0); EOSINOPHILS # (AUTO) 0.1 K/uL (0.0-0.4); EOSINOPHILS % (AUTO) 0.9 % (0.0-4.0); HEMATOCRIT 42.1 % (36-48); HEMOGLOBIN 14.5 g/dL (12.0-16.0); LYMPHOCYTES # (AUTO) 3.4 K/uL (1.0-5.5); LYMPHOCYTES % (AUTO) 31.3 % (20.5-51.5); MEAN CORPUSCULAR HEMOGLOBIN 29 pg (27-31); MEAN CORPUSCULAR HGB CONC 34 % (32-36); MEAN CORPUSCULAR VOLUME 85 fL (79.0-98.0); MONOCYTES % (AUTO) 9.5 % (1.7-9.3); NEUTROPHILS # (AUTO) 6.3 K/uL (1.8-7.7); NEUTROPHILS % (AUTO) 58.2 % (40.0-70.0); PLATELET COUNT (AUTO) 298 K/uL (130-430); RED BLOOD CELL COUNT(AUTO) 4.95 MIL/uL (4.2-6.2); RED CELL DISTRIBUTION WIDTH 14.3 % (9.0-15.0); WHITE BLOOD COUNT (AUTO) 10.8 K/uL (4.8-10.8)
--- NOTE | 2021-02-14 16:56 | NUR ---
ORTHOS BEING DONE AT THIS TIME.
[2021-02-14 17:04] LABS: CALCIUM 9.5 mg/dL (8.4-11.0); CREATININE 0.66 mg/dL (0.55-1.30); POTASSIUM 4.5 mmol/L (3.5-5.1)
[2021-02-14 17:10] LABS: ALBUMIN 3.4 g/dL (3.4-4.8); TOTAL BILIRUBIN 0.3 mg/dL (0.0-1.0)
[2021-02-14 17:45] LABS: BILIRUBIN,URINE NEGATIVE (NEGATIVE); BLOOD, URINE NEGATIVE (NEGATIVE); CLARITY/URINE SLIGHTLY HAZY (CLEAR); COLOR,URINE YELLOW (YELLOW); GLUCOSE,URINE NEGATIVE (NEGATIVE); KETONES,URINE NEGATIVE (NEGATIVE); LEUKOCYTE ESTERASE ,URINE NEGATIVE (NEGATIVE); NITRITE, URINE NEGATIVE (NEGATIVE); PROTEIN URINE NEGATIVE (NEGATIVE); UROBILINOGEN,URINE 0.2 (0.2-1.0)
--- NOTE | 2021-02-14 18:23 | NUR ---
NO ACUTE CHNAGES IN CONDITON, PT SITTING UP IN BED, CONVERSING ON THE PHONE, IN NAD. VSS.
--- NOTE | 2021-02-14 19:16 | NUR ---
ASSUMED CARE OF PT FROM DON BERGERON
[2021-02-14 19:28] VITALS: BP_SYST 124
== END 2021-02-14 19:28 | disposition home or self-care (01) ==
LOC: EEVIPCON 14:14 → SED 14:14
DX: R53.1 Weakness (principal); T44.7X5A Adverse effect of beta-adrenoreceptor antagonists, initial encounter; I10 Essential (primary) hypertension; J44.9 Chronic obstructive pulmonary disease, unspecified; Z88.8 Allergy status to other drugs, medicaments and biological substances; Z79.899 Other long term (current) drug therapy; Y92.89 Other specified places as the place of occurrence of the external cause
CPT/HCPCS: 36415; 71045; 80053; 81003; 83880; 84484; 85025; 93005; 96360; 99285; J7030